=== PATIENT | male | born 1940 | race Caucasian/White ===

== ENCOUNTER 2018-11-20 12:31 | Inpatient (IN) | payer OTHER ==
[2018-11-20] VITALS (9 sets, daily range): BP systolic 82–140; BP diastolic 47–64
[~2018-11-20] VITALS: Ht 170.2 cm; Wt 68.0 kg
--- NOTE | 2018-11-20 12:40 | NUR ---
PATIENT BIB [facility] DUE TO HR=38. PATIENT A/O X 4, NO ACUTE DISTRESS. DENIES ANY PAIN OR DISCOMFORT. AWAITING
[2018-11-20] MEDS ORDERED: ATROPINE SULFATE INJ 1 MG/ML VIAL IV ONE (13:00)
[2018-11-20] MEDS ORDERED: FURO40TA5 PO (13:10)
[2018-11-20] MEDS ORDERED: HYDR-4077 PO (13:10)
[2018-11-20] MEDS ORDERED: METO25CA PO (13:10)
[2018-11-20] MEDS ORDERED: AMLO10TA7 PO (13:10)
[2018-11-20] MEDS ORDERED: SEVE800T7 PO (13:10)
[2018-11-20 13:16] LABS: BASOPHILS # (AUTO) 0.1 /CMM (0.0-0.2); BASOPHILS % (AUTO) 1.6 % (0.0-2.0); EOSINOPHILS % (AUTO) 0.9 % (0.0-6.0); HEMATOCRIT 38 % (39-51); HEMOGLOBIN 12.4 g/dL (13.5-17.5); LYMPHOCYTES # (AUTO) 1.3 /CMM (0.8-4.8); LYMPHOCYTES % (AUTO) 32.4 % (20.0-44.0); MEAN CORPUSCULAR HGB CONC 32 g/dl (31.0-36.0); MEAN CORPUSCULAR VOLUME 100 fL (80-96); MONOCYTES # (AUTO) 0.4 /CMM (0.1-1.30); MONOCYTES % (AUTO) 9.4 % (2.0-12.0); NEUTROPHILS # (AUTO) 2.2 /CMM (1.8-8.9); NEUTROPHILS % (AUTO) 55.7 % (43.0-81.0); PLATELET COUNT (AUTO) 119 /CMM (150-450); RED BLOOD CELL COUNT(AUTO) 3.84 MIL/uL (4.5-6.0)
[2018-11-20] MEDS ORDERED: ATROPINE SULFATE INJ 1 MG/ML VIAL ONE (13:18)
[2018-11-20 13:25] LABS: CALCIUM, SERUM 9.6 mg/dL (8.5-10.1); CARBON DIOXIDE 22 mmol/L (21-32); CHLORIDE 97 mmol/L (98-107); CREATININE 6.5 mg/dL (0.6-1.3); GLUCOSE 135 mg/dL (74-106); SODIUM SERUM 133 mmol/L (136-145); UREA NITROGEN, BLOOD 48 mg/dL (7-18)
[2018-11-20 13:27] LABS: MAGNESIUM 2.2 mg/dL (1.8-2.4)
[2018-11-20 13:29] LABS: POTASSIUM 7.7 mmol/L (3.5-5.1)
[2018-11-20] MEDS ORDERED: SODIUM BICARBONATE SYR 100 MEQ in IV D5W 1,000 ML IV ONE (13:30)
[2018-11-20] MEDS ORDERED: SODIUM POLYSTYRENE SULFONATE 15 G/60 ML BOTTLE PO ONE (13:30)
[2018-11-20] MEDS ORDERED: DEXTROSE 50%-WATER 50 ML DISP.SYRIN IV ONE (13:30)
[2018-11-20] MEDS ORDERED: CALCIUM CHLORIDE 1,000 MG/10 ML DISP.SYRIN IV ONE (13:30)
[2018-11-20] MEDS ORDERED: INSULIN REGULAR, HUMAN 100 UNIT/ML 10 ML VIAL IV ONE (13:30)
--- NOTE | 2018-11-20 13:33 | NUR ---
CALLED [facility] [place] TO INITIATE TRANSFER
[2018-11-20] MEDS ORDERED: SODIUM POLYSTYRENE SULFONATE 15 G/60 ML BOTTLE ONE (13:48)
[2018-11-20] MEDS ORDERED: CALCIUM CHLORIDE 1,000 MG/10 ML DISP.SYRIN ONE (13:49)
[2018-11-20] MEDS ORDERED: DEXTROSE 10% IN WATER 250 ML IV ONE (13:50)
[2018-11-20] MEDS ORDERED: SODIUM BICARBONATE SYR 50 MEQ/50 ML DISP.SYRIN ONE (13:52)
--- NOTE | 2018-11-20 13:56 | NUR ---
D50 REPLACED WITH D10 250 ML PER PROTOCOL AND MD ORDER
[2018-11-20 13:58] LABS: CALCIUM, SERUM 9.1 mg/dL (8.5-10.1); CARBON DIOXIDE 24 mmol/L (21-32); CHLORIDE 100 mmol/L (98-107); CREATININE 6.6 mg/dL (0.6-1.3); GLUCOSE 131 mg/dL (74-106); SODIUM SERUM 135 mmol/L (136-145); UREA NITROGEN, BLOOD 49 mg/dL (7-18)
[2018-11-20] MEDS ORDERED: SODIUM BICARBONATE 5 MEQ/10 ML DISP.SYRIN IV ONE (14:00)
[2018-11-20] MEDS ORDERED: DEXTROSE 10% IN WATER 250 ML BAG IV ONE (14:00)
[2018-11-20 14:01] LABS: POTASSIUM 7.1 mmol/L (3.5-5.1)
--- NOTE | 2018-11-20 14:15 | NUR ---
CALLED [facility]. BEEF KILLER WAS PAGED
--- NOTE | 2018-11-20 14:18 | NUR ---
CALLED [facility] FOR ICU BED
[2018-11-20] MEDS ORDERED: METO25TA6 PO (14:23)
--- NOTE | 2018-11-20 14:40 | NUR ---
CALLED [facility] TO HAVE DR GUERRERO.
--- NOTE | 2018-11-20 14:45 | NUR ---
PATIENT RESTING INSIDE ROOM. NO ACUTE DISTRESS. DENIES ANY PAIN OR DISCOMFORT. NO CHANGES IN LOC NOTED. WILL CONTINUE TO MONITOR
--- NOTE | 2018-11-20 14:50 | NUR ---
ICU [id number] GIVEN
--- NOTE | 2018-11-20 14:56 | NUR ---
CALLED [facility] AND HAD DR GUERRERO
--- NOTE | 2018-11-20 15:04 | NUR ---
PLACED CALL TO ICU AND GAVE REPORT TO BASSEM GUILLORY FOR FABIAN
--- NOTE | 2018-11-20 15:10 | NUR ---
PAGEMihai BENNETT FOR NEPHRO CONSULT, RE: STAT DIALYSIS, PER DR. NAVARRETE.
--- NOTE | 2018-11-20 15:10 | NUR ---
PATIENT TRANSFERRED TO ICU 263 BY [facility] VIA ACLS PROTOCOL. PATIENT AWAKE, ALERT AND ORIENTED. NO ACUTE DISTRESS. DENIES ANY PAIN OR DISCOMFORT. RECEIVING RN AT BEDSIDE Addendum: 11/20/18 at 1542 by JOB ERROR
--- NOTE | 2018-11-20 15:42 | NUR ---
PATIENT TRANSFERRED TO ICU 263 BY [facility] VIA ACLS PROTOCOL. PATIENT AWAKE, ALERT AND ORIENTED. NO ACUTE DISTRESS. DENIES ANY PAIN OR DISCOMFORT. RECEIVING RN AT BEDSIDE
--- NOTE | 2018-11-20 15:45 | NUR ---
PROTECTIVE SIGNAL SUPERINTENDENT NOTE: RECEIVED PATIENT TO ROOM 263 AND REPORT WAS GIVEN BY PASTORA GALAN. PATIENT WAS AWAKE, ALERT AND VERBALLY RESPONSIVE. DENIED ANY PAIN. PATIENT WAS TRANSFERRED FROM THE STRETCHER TO THE BED IN THE ROOM. HOB ELEVATED. CONNECTED THE PATIENT TO THE SEWER SEPARATION DESIGNER, SHOWED SR WITH (L) BBB HR= 61. INTRODUCED SELF TO THE PATIENT. COMPLETE BODY ASSESSMENT WAS DONE. (R) AC 20G IV SITE NOTED PATENT AND INTACT. (L) FOREARM AV FISTULA NOTED WITH + BRUIT AND THRILL. SKIN WAS INTACT AND WARM TO TOUCH. V/S WERE TAKEN. BELONGINGS WERE LISTED ON THE PROPERTY LIST. CALLED AND PAGED DR. ZARAGOZA REGARDING THE PATIENT'S ADMISSION TO THE UNIT AND FOR ADMITTING ORDERS. AWAITING FOR MD ORDERS. BED ALARMED AND LOCKED AT ALL TIMES. CALL LIGHT WITHIN REACH. NEEDS ANTICIPATED.
--- NOTE | 2018-11-20 16:00 | NUR ---
RN NOTE: PATIENT SIGNED THE INFORMED CONSENT FOR THE HEMODIALYSIS. FILED ON PATIENT'S CHART.
[2018-11-20] MEDS ORDERED: Z GUARD REMEDY 2 OZ OINT TP PRN (18:00)
[2018-11-20] MEDS ORDERED: ACETAMINOPHEN 325 MG TABLET PO PRN (18:00)
[2018-11-20] MEDS ORDERED: ONDANSETRON HCL/PF 4 MG/2 ML VIAL IVP PRN (18:00)
[2018-11-20] MEDS ORDERED: ASPI-992 PO (18:11)
[2018-11-20] MEDS ORDERED: B CO1TAB7 PO (18:11)
[2018-11-20] MEDS ORDERED: NITR0.4T48 SL (18:11)
[2018-11-20] MEDS ORDERED: ALLO100T PO (18:11)
[2018-11-20] MEDS: SEVELAMER CARBONATE 800 MG TABLET PO SCH (18:41)
--- NOTE | 2018-11-20 19:15 | NUR ---
RN NOTE: PATIENT'S , SHANA CAME AND SAID THAT SHE WANTED THE PATIENT TO BE TRANSFERRED TO [facility] [place]. SHE WAS INFORMED THAT SECURITY OPERATIONS MANAGER WILL BE INFORM ABOUT IT BY TOMORROW. BEDSIDE REPORT WAS GIVEN TO PM SHIFT NURSE FOR CONTINUITY OF CARE AND PATIENT WAS STILL ONGOING WITH HEMODIALYSIS. ENDORSED TO PM SHIFT NURSE THE REPEAT BMP BY 2100 TONIGHT AFTER HD.
--- NOTE | 2018-11-20 20:00 | NUR ---
INSPECTOR RUBBER STAMP DIE NOTE: RECEIVED PATIENT AWAKE, ALERT AND VERBALLY RESPONSIVE. DENIED ANY PAIN, ON GOING DIALYSIS, WELL TOLERATED . HOB ELEVATED. CONNECTED THE PATIENT TO THE PULMONARY PHYSICIAN, SHOWED SR WITH (L) BBB HR= 61. (R) AC 20G IV SITE NOTED PATENT AND INTACT. (L) FOREARM AV FISTULA NOTED WITH + BRUIT AND THRILL. SKIN WAS INTACT AND WARM TO TOUCH. V/S ON MONITOR, BED ALARM AND LOCKED AT ALL TIMES. CALL LIGHT WITHIN REACH. NEEDS ANTICIPATED. Addendum: 11/20/18 at 2231 by SALAZAR GARCIA RN PASTORA INITIAL NOTE
[2018-11-20 21:33] LABS: CALCIUM, SERUM 9.4 mg/dL (8.5-10.1); CARBON DIOXIDE 28 mmol/L (21-32); CHLORIDE 101 mmol/L (98-107); CREATININE 4.4 mg/dL (0.6-1.3); GLUCOSE 165 mg/dL (74-106); POTASSIUM 4.3 mmol/L (3.5-5.1); SODIUM SERUM 140 mmol/L (136-145); UREA NITROGEN, BLOOD 25 mg/dL (7-18)
[2018-11-21] VITALS (31 sets, daily range): BP systolic 100–170; BP diastolic 50–73
--- NOTE | 2018-11-21 06:30 | NUR ---
RN CLOSING NOTE: ENDORSED PATIENT AWAKE, ALERT AND VERBALLY RESPONSIVE. DENIED ANY PAIN, S/P DIALYSIS, WELL TOLERATED, 500 ML/O/P . HOB ELEVATED. CONNECTED THE PATIENT TO THE MOVIE SHOT CAMERAMAN, SHOWED SR WITH (L) BBB HR= 52. (R) AC 20G IV SITE NOTED PATENT AND INTACT. (L) FOREARM AV FISTULA NOTED WITH + BRUIT AND THRILL. SKIN WAS INTACT AND WARM TO TOUCH. V/S ON MONITOR, BED ALARM AND LOCKED AT ALL TIMES. CALL LIGHT WITHIN REACH. NEEDS ANTICIPATED.
--- NOTE | 2018-11-21 07:00 | NUR ---
ICU/RN AM SHIFT INITIAL NOTES RECEIVED PT ASLEEP IN BED, EASILY AROUSED, PT A/O X 4, DENIES ANY SYMPTOMS, NO ACUTE CHANGE OF CONDITION NOTED. PT ON ROOM AIR SATURATING @ 90%, RESPIRATIONS EVEN & UNLABORED. LUNG SOUNDS CLEAR. ON TELE WITH SINUS LORE, HR 51, ASYMPTOMATIC. IV SITE FLUSHED, PATENT WITH NO S/S OF INFECTION, SL. AV SHUNT ON LEFT UPPER ARM, POSITIVE OF THRILL & BRUIT, DRESSING INTACT. PT IS COMFORTABLE, SCHEDULED AM MEDS TO BE GIVEN. CL WITHIN REACHED AND SAFETY MAINTAINED. ON GOING MONITORING.
[2018-11-21 07:19] LABS: BASOPHILS % (AUTO) 1.5 % (0.0-2.0); EOSINOPHILS % (AUTO) 0.7 % (0.0-6.0); HEMATOCRIT 34 % (39-51); HEMOGLOBIN 11.3 g/dL (13.5-17.5); LYMPHOCYTES % (AUTO) 30.7 % (20.0-44.0); MEAN CORPUSCULAR HGB CONC 33 g/dl (31.0-36.0); MEAN CORPUSCULAR VOLUME 98 fL (80-96); MONOCYTES # (AUTO) 0.4 /CMM (0.1-1.30); MONOCYTES % (AUTO) 11.7 % (2.0-12.0); NEUTROPHILS # (AUTO) 1.8 /CMM (1.8-8.9); NEUTROPHILS % (AUTO) 55.4 % (43.0-81.0); PLATELET COUNT (AUTO) 77 /CMM (150-450); RED BLOOD CELL COUNT(AUTO) 3.52 MIL/uL (4.5-6.0); WHITE BLOOD COUNT (AUTO) 3.3 K/uL (4.3-11.0)
[2018-11-21 07:40] LABS: CHOLESTEROL 140 mg/dL (<200); HDL CHOLESTEROL 55 mg/dL (40-60); LDL 72 mg/dL (0-99); THYROID STIMULATING HORMONE 2.799 uIU/mL (0.358-3.74); TRIGLYCERIDES 41 mg/dL (30-150)
[2018-11-21 07:45] LABS: ALANINE AMINOTRANSFERASE 12 U/L (12-78); ALBUMIN 3.5 g/dL (3.4-5.0); ALKALINE PHOSPHATASE 40 U/L (46-116); ASPARTATE AMINOTRANSFERASE 11 U/L (15-37); BILIRUBIN,TOTAL 0.3 mg/dL (0.2-1.0); CALCIUM, SERUM 8.9 mg/dL (8.5-10.1); CARBON DIOXIDE 27 mmol/L (21-32); CHLORIDE 104 mmol/L (98-107); CREATININE 5.6 mg/dL (0.6-1.3); GLUCOSE 69 mg/dL (74-106); MAGNESIUM 1.9 mg/dL (1.8-2.4); PHOSPHORUS 4.7 mg/dL (2.5-4.9); POTASSIUM 4.9 mmol/L (3.5-5.1); SODIUM SERUM 140 mmol/L (136-145); TOTAL PROTEIN, SERUM 6.5 g/dL (6.4-8.2); UREA NITROGEN, BLOOD 31 mg/dL (7-18)
[2018-11-21 07:46] LABS: IRON, SERUM 64 ug/dl (50-175); TOTAL IRON BINDING CAPACITY 174 ug/dl (250-450)
[2018-11-21] MEDS: SEVELAMER CARBONATE 800 MG TABLET PO SCH ×3 (08:18→17:56)
[2018-11-21 08:22] LABS: EOSINOPHILS % (MANUAL) 2 % (0-4); LYMPHOCYTES % (MANUAL) 30 % (16-48); MONOCYTES % (MANUAL) 11 % (0-11.0); NEUTROPHILS % (MANUAL) 57 (42-76)
--- NOTE | 2018-11-21 08:28 | NUR ---
ICU/RN ROUNDS - DR. BENNETT PT SEEN & EXAMINED BY DR. BENNETT. NO NEW ORDER RECEIVED AT THIS TIME. MONITORING CONTINUED.
[2018-11-21] MEDS ORDERED: FUROSEMIDE 40 MG TABLET PO SCH (09:00)
[2018-11-21] MEDS ORDERED: hydrALAZINE HCL 50 MG TABLET PO SCH (09:00)
[2018-11-21] MEDS ORDERED: AMLODIPINE BESYLATE 10 MG TABLET PO SCH (09:00)
[2018-11-21] MEDS ORDERED: SEVELAMER CARBONATE 800 MG TABLET PO SCH (09:00)
--- NOTE | 2018-11-21 11:00 | NUR ---
ICU/RN ROUNDS NO CHANGE OF CONDITION. PT RESTING COMFORTABLY. MONITORING CONTINUED.
--- NOTE | 2018-11-21 13:00 | NUR ---
RN NOTE: RECEIVED PATIENT FROM Robb CAMPOS RN AND PATIENT WAS TRANSFERRED TO ROOM 111-1. PATIENT WAS TRANSFERRED VIA WHEELCHAIR WITH HIS , SHANA AND ALL BELONGINGS WERE TAKEN WITH THE PATIENT. BEDSIDE REPORT WAS GIVEN BY Robb CAMPOS RN FOR CONTINUITY OF CARE.
--- NOTE | 2018-11-21 13:00 | NUR ---
TELE1/DESKTOP ADMINISTRATOR - 111#1 PT DOWN GRADED TO TELE, PT TRANSFERRED VIA WHEELCHAIR IN STABLE CONDITION. REPORT GIVEN TO TELE NURSE BASSEM.
[2018-11-21] MEDS ORDERED: SODIUM POLYSTYRENE SULFONATE 15 G/60 ML BOTTLE PO ONE (15:30)
--- NOTE | 2018-11-21 15:52 | NUR ---
RN NOTE: CALLED AND SPOKE WITH THE PHARMACY STAFF AND FOLLOWED-UP WITH THE [facility] FOR 3:30PM. PER PHARMACIST, THE MUSICAL STRING MAKER WILL DELIVER THE MEDICATION TO THE UNIT.
--- NOTE | 2018-11-21 18:20 | NUR ---
RN NOTE: PATIENT WAS DISCHARGED TO HOME AND WAS ACCOMPANIED BY HIS , ERAN. DISCHARGE INSTRUCTIONS WERE GIVEN TO THE PATIENT AND HIS , ERAN AND NO QUESTIONS WITH DISCHARGE INSTRUCTIONS. EXIT CARE WAS DONE. PATIENT SIGNED THE PACKET AND HIS BELONGING LIST. ALL BELONGINGS WERE RELEASED TO THE PATIENT AND PATIENT WAS WHEELED TO THE MAIN LOBBY OF THE HOSPITAL VIA WHEELCHAIR FOLLOWED BY HIS , ERAN. (R) FOREARM IV SITE WAS REMOVED AND APPLIED PRESSURE AND COVERED WITH DRY GAUZE AND SECURED WITH TAPE. C IRON WORKER WAS REMOVED.
== END 2018-11-21 18:20 | disposition home or self-care (01) | DRG 308 ==
LOC: ER 12:32 → ICU 14:55 → TELE1 11-21 12:49
PROVIDERS: ADMIT Nurse Practitioner Acute Care; ATTEND Nurse Practitioner Acute Care
PROC: 5A1D70Z Performance of Urinary Filtration, Intermittent, Less than 6 Hours Per Day (ICD-10-PCS; principal; 2018-11-20)
DX: R00.1 Bradycardia, unspecified (principal); N18.6 End stage renal disease; I12.0 Hypertensive chronic kidney disease with stage 5 chronic kidney disease or end stage renal disease; E87.1 Hypo-osmolality and hyponatremia; E87.5 Hyperkalemia; N25.0 Renal osteodystrophy; Z88.8 Allergy status to other drugs, medicaments and biological substances; Z79.899 Other long term (current) drug therapy; D63.8 Anemia in other chronic diseases classified elsewhere; E83.39 Other disorders of phosphorus metabolism; D69.6 Thrombocytopenia, unspecified; Z99.2 Dependence on renal dialysis; Z91.19 Patient's noncompliance with other medical treatment and regimen; E87.6 Hypokalemia
CPT/HCPCS: 36415; 71045-TC; 80048-TC; 80053-TC; 80061-TC; 83540-TC; 83735-TC; 84100-TC; 84443-TC; 84484-TC; 85025-TC; 86704; 86706; 87081-TC; 87340; 90935-TC; 93307-TC; G0378; J0461; J3490